=== PATIENT | male | born 1950 | race Caucasian/White ===

== ENCOUNTER 2018-12-23 21:23 | Emergency (ER) | payer OTHER, MEDICARE ==
[~2018-12-23] VITALS: Ht 175.3 cm; Wt 80.3 kg
[~2018-12-23 21:23] MED LIST: COLACE 100 MG100 MG PO; LISINOPRIL2.5 MG PO; TRAMADOL 50 MG50 MG PO
[2018-12-23 21:56] LABS: ABSOLUTE NEUTROPHILS 4.7 thou/uL (1.4-8.2); BASOPHILS 0.1 % (0.0-2.0); EOSINOPHILS 2.9 % (0.0-3.0); LYMPHOCYTES 24.2 % (24.0-44.0); MCHC 33.2 g/dL (28.0-37.0); MCV 90.6 fL (80.0-100.0); MONOCYTES 10.3 % (1.0-8.0); PLATELET COUNT 612 thou/uL (150-400); POLYS 62.5 % (36.0-66.0); RBC 3.98 mil/uL (4.50-6.00); RDW 14.3 % (10.5-14.5); WBC 7.5 thou/uL (4.0-11.0)
[2018-12-23 22:02] LABS: CALCIUM 8.5 mg/dL (8.5-10.1); CREATININE 1.4 mg/dL (0.7-1.3); POTASSIUM 4.4 mmol/L (3.5-5.1)
[2018-12-23 22:05] LABS: INR 1.1
[2018-12-23 22:08] LABS: ALBUMIN 3.2 g/dL (3.4-5.0); TOTAL BILIRUBIN 0.6 mg/dL (<0.1-1.0); TOTAL PROTEIN 7.6 g/dL (6.4-8.2)
[2018-12-23 22:42] VITALS: BP 134/68
== END 2018-12-23 23:05 | disposition home or self-care (01) ==
LOC: ER 21:23
PROVIDERS: Emergency Medicine
DX: R04.0 Epistaxis (principal); I10 Essential (primary) hypertension; Z95.1 Presence of aortocoronary bypass graft; Z88.1 Allergy status to other antibiotic agents; Z98.890 Other specified postprocedural states